=== PATIENT | female | born 1955 | race Caucasian/White ===

== ENCOUNTER 2025-05-09 06:05 | Day surgery (SDC) | payer MEDICARE, OTHER ==
[~2025-05-09] VITALS: Ht 172.7 cm; Wt 83.5 kg
[2025-05-09] VITALS (8 sets, daily range): BP systolic 130–149; BP diastolic 61–71; PULSE 48–61; RESP 12–16; TEMP 97.9; O2SAT 97–100
[2025-05-09] MEDS: DOCUMENT DATE & TIME OF BETA-BLOCKER PO ONE (04:30)
[~2025-05-09 06:05] MED LIST: ALEN70TA80 PO; AMLO-381 PO; ASCO10004 PO; CELE-148 PO; CHOL100046 PO; COLLAGEN PO; FERR325T28 PO; GABA-1405 PO; MULT-1085 PO; NEBI10TA13 PO; OMEP20CA16 PO; VIT PO; VITA-268 PO; [UNRECOGNIZED DRUG - OTHER] PO
[2025-05-09] MEDS: ringers solution, lacted 1,000 ML IV SCH (07:21)
[2025-05-09] MEDS ORDERED: propofol inj 20 ML IV ONE ×3 (08:39→09:24)
== END 2025-05-09 10:28 | disposition home or self-care (01) ==
LOC: GI LAB 06:05
PROVIDERS: ATTEND Internal Medicine Gastroenterology
DX: Z12.11 Encounter for screening for malignant neoplasm of colon (principal); D12.0 Benign neoplasm of cecum; I10 Essential (primary) hypertension; E11.9 Type 2 diabetes mellitus without complications; M81.0 Age-related osteoporosis without current pathological fracture; I25.2 Old myocardial infarction; Z87.891 Personal history of nicotine dependence; Z79.899 Other long term (current) drug therapy; Z88.5 Allergy status to narcotic agent
CPT/HCPCS: 45385; 88305; A4620; J2704; J7120; Z7512; Z7610; 45380